=== PATIENT | female | born 1945 | race Caucasian/White ===

== ENCOUNTER 2017-05-10 11:46 | Inpatient (IN) | payer OTHER ==
[~2017-05-10] VITALS: Ht 154.9 cm; Wt 73.9 kg
[2017-05-10 13:37] LABS: HEMATOCRIT 43.9 % (36.0-46.0); MCH 29.5 PG (29.0-34.0); MCV 89.4 FL (83-99); MEAN PLAT.VOLUME 8.6 uM^3 (9.5-12.4); PLATELET COUNT 272 K/uL (156-360); RBC DIS.WIDTH-SD 42.6 % (39-53); RED BLOOD COUNT 4.91 M/uL (3.80-5.20); WHITE BLOOD COUNT 4.2 K/uL (4.1-10.2)
[2017-05-10 13:47] LABS: CHLORIDE 106 mEq/L (99-109); POTASSIUM 4.2 mEq/L (3.7-5.4); SODIUM 138 mEq/L (136-147)
[2017-05-10 13:49] LABS: GLUCOSE 100 mg/dL (70-99)
[2017-05-10 13:50] LABS: ANION GAP 8 MEQ/L (2-14)
[2017-05-10 13:51] LABS: TOTAL BILIRUBIN 0.7 mg/dL (0.0-1.0)
[2017-05-10 13:53] LABS: ALKALINE PHOSPHATASE 90 IU/L (3-129); GFR ESTIMATE (CALCULATED) > 59 mL/min/
[2017-05-10 13:54] LABS: UREA NITROGEN (BUN) 8 mg/dL (9-23)
[2017-05-10] MEDS ORDERED: ASPIR-TRIN325 M1 PO (15:44)
[2017-05-10 20:16] VITALS: BP 142/72
[2017-05-11] VITALS (7 sets, daily range): BP systolic 132–191; BP diastolic 76–82
[2017-05-11 06:08] LABS: HEMATOCRIT 36.5 % (36.0-46.0); MCH 30.6 PG (29.0-34.0); MCHC 33.7 G/DL (30.0-36.0); MCV 90.8 FL (83-99); MEAN PLAT.VOLUME 8.6 uM^3 (9.5-12.4); PLATELET COUNT 216 K/uL (156-360); RBC DIS.WIDTH-SD 43.1 % (39-53); RED BLOOD COUNT 4.02 M/uL (3.80-5.20); WHITE BLOOD COUNT 3.9 K/uL (4.1-10.2)
[2017-05-11 06:35] LABS: ANION GAP 6 MEQ/L (2-14); CHLORIDE 105 MEQ/L (99-109); GFR ESTIMATE (CALCULATED) > 59 mL/min/; GLUCOSE 108 mg/dL (70-99); POTASSIUM 4.3 MEQ/L (3.7-5.4); SAMPLE HEMOLYSIS CHECK 0; SAMPLE ICTERIC CHECK 0; SAMPLE LIPEMIA CHECK 0; SODIUM 138 MEQ/L (136-147); UREA NITROGEN (BUN) 8 mg/dL (9-23)
[2017-05-11 18:01] LABS: Varicella IgG >4000.00 Index (>=165.00); Varicella IgM 3.84 (<=0.90)
[2017-05-12 03:54] VITALS: BP 170/77
[2017-05-12 08:49] VITALS: BP 178/70
[2017-05-12 12:23] VITALS: BP 176/72
[2017-05-12 16:05] VITALS: BP 176/71
[2017-05-12 23:38] VITALS: BP 150/81
[2017-05-13 07:51] VITALS: BP 192/88
[2017-05-13] MEDS ORDERED: KEFLEX500 MG PO (08:45)
[2017-05-13] MEDS ORDERED: BACTRIM,SEPT1 TABLET PO (08:45)
[2017-05-13] MEDS ORDERED: VALTREX1000 MG PO (08:46)
[2017-05-13 15:28] VITALS: BP 189/84
[2017-05-13 23:50] VITALS: BP 173/76
[2017-05-14 06:10] LABS: GFR ESTIMATE (CALCULATED) > 59 mL/min/
[2017-05-14 07:52] VITALS: BP 124/78
[2017-05-14] MEDS ORDERED: GABAPENTIN100 MG PO (15:16)
[2017-05-14] MEDS ORDERED: AMLODIPINE BESYL5 MG PO (15:16)
[2017-05-14] MEDS ORDERED: MUPIROCIN15 GM TP (15:16)
[2017-05-14] MEDS ORDERED: Tylenol Extra Streng PO (15:18)
[2017-05-14 23:59] VITALS: BP 124/76
[2017-05-15 08:28] VITALS: BP 190/85
[2017-05-15 09:59] VITALS: BP 172/80
[2017-05-15] MEDS ORDERED: VALTREX1000 MG PO (13:25)
[2017-05-15] MEDS ORDERED: KEFLEX500 MG PO (13:25)
[2017-05-15] MEDS ORDERED: BACTRIM,SEPT1 TABLET PO (13:25)
== END 2017-05-15 16:28 | disposition home or self-care (01) | DRG 125 ==
LOC: EME 11:46 → EDOF 15:49 → 5SOUTH 15:49 → ENRESERV 15:53 → 5SOUTH 16:37 → EDOF 16:50 → 5SOUTH 17:42
PROVIDERS: Internal Medicine; Internal Medicine Infectious Disease; Nurse Practitioner Family
DX: B02.30 Zoster ocular disease, unspecified (principal); L03.213 Periorbital cellulitis; H05.011 Cellulitis of right orbit; I10 Essential (primary) hypertension; G50.0 Trigeminal neuralgia; M19.90 Unspecified osteoarthritis, unspecified site; Z79.82 Long term (current) use of aspirin
CPT/HCPCS: 70481; 80048; 80053; 80202; 82565; 85027; 86787 90; 87641; 99281; 99284; J0133; J0690; J0696; J1650; J1885; J2270; J2405; J3370; J7030; J7050